=== PATIENT | female | born 1960 | race Caucasian/White ===

== ENCOUNTER 2017-03-03 06:40 | Emergency (ER) | payer BC ==
[~2017-03-03] VITALS: Ht 167.6 cm; Wt 109.8 kg
--- NOTE | ~2017-03-03 | CR181 ---
[facility] A Service of [facility] & [facility] RADIOLOGY TEXT RESULTS PATIENT: SUMAN FOY LOCATION: [facility] : 58 UNIT #: [id number] AGE: [address]: Joan Maynard APRN SEX: F ORDER DR: [id number] [facility] [address] [place], [place] [address] [id number] MR#: [id number] Acc #: [id number] NAME: SUMAN FOY : 1960 SEX: F STUDY DATE/TIME: 03/03/2017 9:04 UNIT: [facility] ROOM: STUDY DESCRIPTION: CR Lumbar Spine 2 or 3 Views Attending Physician: Joan Maynard A.P.R.N. Ordering Physician: Ed Adolfo Patten M.D. Primary Care Physician: Beau Wasserman M.D. MEDICAL IMAGING REPORT This report is preliminary unless electronic signature is present EXAM Lumbar spine series 03/03/2017 HISTORY Lumbar spine pain on the left lower back radiating down the left leg for 1 day. Marble pain after laying with granddaughter. FINDINGS No lumbar spine fracture or subluxation is seen. Disc height appears well maintained. Small marginal osteophytes are present at each lumbar level. Incidental note is made of presumed surgical coils in midline of pelvis and cholecystectomy changes in the left upper quadrant. No sacroiliac joint diastasis. No osteolytic or osteoblastic abnormality. IMPRESSION Normal lumbar spine. Dictated by... Patti Ahuja M.D. THIS IS AN ELECTRONICALLY VERIFIED REPORT Patti Ahuja M.D. at 03/04/2017 8:43 AM LLHeraclio/surinder TD: 03/03/2017 14:18 JOB #: [id number] MEDICAL IMAGING REPORT Page 1 of 1 COPY
[~2017-03-03 06:40] MED LIST: ASPIRIN PO; CLARITIN10 MG PO; COUMADIN PO; FERROUS SULFATE PO; KCL PO; LASIX PO; STOOL SOFTENER; TOPROL XL PO
[2017-03-03] MEDS ORDERED: MIRALAX17 GM PO (06:47)
[2017-03-03 07:34] LABS: BASOPHIL# 0.1 X10e3 (0-0.3); BASOPHIL% 0.5 % (0-2.5); EOSINOPHIL% 0.3 % (0.0-7.0); HEMATOCRIT 36.5 % (35.0-45.0); LYMPHOCYTE% 9.7 % (17.0-45.0); MEAN CELL VOLUME 76.1 FL (83-96); MEAN CORPUSCULAR HGB CONC 32.8 g/dL (30-36); MEAN PLATELET VOLUME 7.8 FL (6.5-11.5); MONOCYTE# 0.3 X10e3 (0-1.0); MONOCYTE% 2.9 % (3.0-12.0); NEUTROPHIL# 8.9 X10e3 (1.5-7.1); NEUTROPHIL% 86.6 % (40-75); PLATELET COUNT 207 X10e3 (140-420); RED CELL DISTRIBUTION WIDTH 16.7 % (11.0-15.5); WHITE BLOOD COUNT 10.2 X10e3 (4.0-10.5)
[2017-03-03 07:37] LABS: DIFF IND NO
[2017-03-03 07:45] LABS: INR 1.8; PROTHROMBIN TIME (PATIENT) 19.8 SECONDS (10.0-11.7)
[2017-03-03 07:57] LABS: CALCIUM SERUM 8.9 mg/dL (8.4-10.2); CREATININE SERUM 0.8 mg/dL (0.6-1.4); GLOM FILT RATE Estimated 81.9 mL/min (>60); POTASSIUM 3.7 mmol/L (3.5-5.1)
== END 2017-03-03 11:16 | disposition home or self-care (01) ==
LOC: CED 06:40
PROVIDERS: Nurse Practitioner
DX: M54.42 Lumbago with sciatica, left side (principal); R03.0 Elevated blood-pressure reading, without diagnosis of hypertension; R79.1 Abnormal coagulation profile; Z87.442 Personal history of urinary calculi; Z90.49 Acquired absence of other specified parts of digestive tract; Z90.710 Acquired absence of both cervix and uterus; Z98.890 Other specified postprocedural states; Z88.8 Allergy status to other drugs, medicaments and biological substances
CPT/HCPCS: 36415; 72100; 80048; 85025; 85610; 96372; 99284; J2270